=== PATIENT | male | born 1945 | race Caucasian/White ===

== ENCOUNTER → 2018-02-12 | Outpatient (CLI) | payer MEDICARE, BC ==
--- NOTE | 2018-02-12 12:51 | CT ---
EXAMINATION TYPE: CT abdomen pelvis w con DATE OF EXAM: 02/12/2018 COMPARISON: NONE HISTORY: 72-year-old male Right flank pain TECHNIQUE: Contiguous axial scanning of the abdomen and pelvis following administration of 100 ml Omn ipaque 300 IV contrast. Delayed images through the kidneys and coronal/sagittal reconstructions perf ormed. CT DLP: 1044.4 mGycm Automated exposure control for dose reduction was used. FINDINGS: Median sternotomy wires are present. Heart normal size without pericardial effusion. Lung bases clear without pleural effusion. Small hiatal hernia. Liver borderline enlarged measuring 18.0 cm. No focal liver lesion seen. No biliary ductal dilatation . Portal venous system is patent. Gallbladder, adrenal glands, left kidney, and pancreas appear within normal limits. Spleen borderline to mildly enlarged measuring 14.0 cm on axial series. Numerous subcentimeter hypodensities within the right kidney too small for accurate CT characterizati on, likely tiny cortical cysts, the largest measures 2.1 cm at the anterior mid to lower pole and wesley ws no significant change in density on delayed kidney images suggesting a cyst. Mild to moderate atherosclerotic calcifications throughout the abdominal aorta and iliac arteries. Appendix is normal. Oral contrast progressed to the hepatic flexure. Mild to moderate stool burden. N o pericolonic inflammatory change. No mesenteric or retroperitoneal lymphadenopathy. Small fatty umbilical hernia. Bladder partially distended. Central prostatic calcifications. Prostate gland is mildly enlarged at 4 .7 cm wide. No abnormal fluid collection in the pelvis or pelvic lymphadenopathy seen. Partially visu alized right scrotal hydrocele. Bones: Osteitis pubis and degenerative changes at the hips and SI joints. Grade 2 anterolisthesis at L5-S1 with bilateral L5 pars defects and facet arthropathy mid to lower arnaud mbar spine. Degenerative disc disease at both L4-L5 and advanced at L5-S1. No osseous destructive pro cess. IMPRESSION: 1. A NUMBER OF SUBCENTIMETER HYPODENSITIES IN THE RIGHT KIDNEY ARE TOO SMALL FOR ACCURATE CT CHARACTE RIZATION AND LIKELY REPRESENT SMALL CORTICAL CYSTS. THE LARGEST MEASURES 2.1 CM AND IS COMPATIBLE WIT H A CYST. 2. BORDERLINE TO MILD SPLENOMEGALY (14.0 CM). 3. BILATERAL L5 PARS DEFECTS WITH GRADE 2 ANTEROLISTHESIS AT L5-S1 AND ASSOCIATED SPONDYLOTIC CHANGE LOWER LUMBAR SPINE. 4. SMALL HIATAL HERNIA.
== END | disposition home or self-care (01) ==
LOC: RADCTMAIN 09:48
PROVIDERS: ATTEND Family Medicine
DX: K44.9 Diaphragmatic hernia without obstruction or gangrene (principal); N28.89 Other specified disorders of kidney and ureter; R16.1 Splenomegaly, not elsewhere classified
CPT/HCPCS: 82565; 84520; 74177; 36415; Q9967

== ENCOUNTER 2018-02-27 12:41 | Day surgery (SDC) | payer MEDICARE, BC ==
[2018-02-26 08:44] VITALS: BMI 29.4
[~2018-02-27 12:41] MED LIST: LACTATED RINGERS 1,000 ML IV SCH
[2018-02-27 13:22] VITALS: TEMP 97
[2018-02-27] MEDS ORDERED: LIDOCAINE 1% 20 ML VIAL (10MG/ML) FOR IV START INTRADERMA ONE (13:22)
[2018-02-27] MEDS ORDERED: LIDOCAINE 1% INJ 10MG/ML (20 ML MDV) ONE (13:39)
[2018-02-27] MEDS ORDERED: PROPOFOL 10 MG/ML 20 ML VIAL IV ONE (13:39)
[2018-02-27] MEDS ORDERED: IV FLUID CONTINUATION 400 ML IV ONE (14:04)
--- NOTE | 2018-02-27 14:09 | P.PCN ---
Date of Procedure: 02/27/18 Procedure(s) Performed: Procedure: Total colonoscopy. Preoperative diagnosis: Screening for neoplasia. Postoperative diagnosis: Mild sigmoid diverticulosis with no evidence of acute diverticulitis, strictures, polyps or cancer. Preparation: HalfLytely prep. Sedation: Was provided by anesthesia. Brief clinical history: The patient is a 72-year-old male who is scheduled for this evaluation for screening for neoplasia age being his risk factor. He had a prior exam more than 10 years ago. The patient has no abdominal complaints, bleeding or anemia. Procedure: With the patient on his left lateral decubitus position and after informed consent and adequate sedation, the perianal area was inspected and it did not show any fissures or fistulas. There were no masses felt on digital rectal examination. The Olympus CFQ 160L video colonoscope was then inserted in the rectum in the usual fashion and advanced to the cecum. There was occasional small diverticular orifices seen in the sigmoid but I saw no evidence of acute diverticulitis or strictures. No polyps or tumors were seen. I retroflexed the endoscope in the rectum before the endoscope was withdrawn. The patient tolerated the procedure well. Plan: The patient was reassured. Discussed dietary measures. He will follow up with you as planned and I recommended repeat exam in 10 years depending on his overall health at that time. He will discuss that with you.
[2018-02-27 14:28] VITALS: BP 143/75; PULSE 68; RESP 16
== END 2018-02-27 14:31 | disposition home or self-care (01) ==
LOC: ORWHC2ENDO 12:41
DX: Z12.11 Encounter for screening for malignant neoplasm of colon (principal); K57.30 Diverticulosis of large intestine without perforation or abscess without bleeding; I10 Essential (primary) hypertension; E78.5 Hyperlipidemia, unspecified; Z95.1 Presence of aortocoronary bypass graft
CPT/HCPCS: J2001; J2704; G0121

== ENCOUNTER 2018-11-18 07:47 | Observation (INO) | payer MEDICARE, BC ==
[2018-11-18] MEDS ORDERED: MORPHINE SULFATE 2 MG/ML SYRINGE IVP STA (08:30)
--- NOTE | 2018-11-18 08:33 | ED ---
General Adult HPI - General Chief complaint: Extremity Problem,Nontraumatic Stated complaint: shoulder pain Time Seen by Provider: 11/18/18 08:10 Source: patient, RN notes reviewed Mode of arrival: ambulatory Limitations: no limitations - History of Present Illness Initial comments: Patient is a pleasant 73-year-old male presenting to the emergency department with complaints of upper thoracic back pain. Onset of symptoms was around 2 AM. Discomfort is moderate. Discomfort feels like an ache. There may be some radiation up towards the neck and there may be very mild headache. No confusion. No visual problems. No weakness. No chest pain or dyspnea. 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 - Related Data Home Medications Medication Instructions Recorded Confirmed Aspirin EC [Ecotrin Low Dose] 81 mg PO DAILY 06/13/16 11/18/18 Hydrochlorothiazide 25 mg PO BID 06/13/16 11/18/18 Losartan Potassium [Cozaar] 100 mg PO DAILY 06/13/16 11/18/18 Metoprolol Tartrate [Lopressor] 50 mg PO DAILY 06/13/16 11/18/18 Simvastatin [Zocor] 40 mg PO HS 06/13/16 11/18/18 Chlorthalidone 25 mg PO DAILY 11/18/18 11/18/18 hydrALAZINE HCL [Apresoline] 100 mg PO TID 11/18/18 11/18/18 Allergies Allergy/AdvReac Type Severity Reaction Status Date / Time No Known Allergies Allergy Verified 11/18/18 10:44 Review of Systems ROS Statement: Those systems with pertinent positive or pertinent negative responses have been documented in the HPI. ROS Other: All systems not noted in ROS Statement are negative. Constitutional: Denies: fever Eyes: Denies: eye pain ENT: Denies: ear pain Respiratory: Denies: cough, dyspnea Cardiovascular: Denies: chest pain Endocrine: Denies: fatigue Gastrointestinal: Denies: abdominal pain Genitourinary: Denies: dysuria Musculoskeletal: Reports: as per HPI, back pain Skin: Denies: rash Neurological: Reports: as per HPI. Denies: weakness, confusion Past Medical History Past Medical History: Hyperlipidemia, Hypertension History of Any Multi-Drug Resistant Organisms: None Reported Past Surgical History: Coronary Bypass/CABG, Heart Catheterization Additional Past Surgical History / Comment(s): 5 way bypass 2003 Past Anesthesia/Blood Transfusion Reactions: No Reported Reaction Past Psychological History: No Psychological Hx Reported Smoking Status: Never smoker Past Alcohol Use History: None Reported Past Drug Use History: None Reported - Past Family History Mother Family Medical History: Deep Vein Thrombosis (DVT), Pulmonary Embolus General Exam Limitations: no limitations General appearance: alert, in no apparent distress Head exam: Present: atraumatic Eye exam: Present: normal appearance, PERRL ENT exam: Present: normal oropharynx Neck exam: Present: normal inspection. Absent: tenderness, meningismus Respiratory exam: Present: normal lung sounds bilaterally Cardiovascular Exam: Present: regular rate, normal rhythm Expanded Peripheral pulses: 2+: Radial (R), Radial (L), Posterior Tibialis (R), Posterior Tibialis (L), Dorsalis Pedis (R), Dorsalis Pedis (L) GI/Abdominal exam: Present: soft. Absent: tenderness Extremities exam: Present: normal inspection. Absent: pedal edema, calf tenderness Back exam: Present: normal inspection, full ROM. Absent: tenderness Neurological exam: Present: alert, oriented X3, CN II-XII intact. Absent: motor sensory deficit Psychiatric exam: Present: normal affect, normal mood Skin exam: Present: normal color Course Vital Signs 11/18/18 07:49 Temperature 98.1 F Pulse Rate 101 H Respiratory 18 Rate Blood Pressure 180/74 O2 Sat by Pulse 97 Oximetry EKG Findings - EKG Comments: EKG Findings:: Normal sinus rhythm 84. [place] 172. QRS 104. QT 382. QTC 451. Normal axis. Inferior T wave inversion. Normal QRS. Medical Decision Making - Medical Decision Making Patient reevaluated and improved following morphine. Patient and family updated on results and plan. 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 Patient did have a stress test not long ago with some concern for partial blockage in the lower part of his heart. Dr. Nesbitt has been paged, covering for Dr. Ruiz. - Lab Data Result diagrams: 11/18/18 08:50 11/18/18 08:50 Lab Results 11/18/18 11/18/18 11/18/18 Range/Units 08:50 08:50 08:50 WBC 3.6 L (3.8-10.6) k/uL RBC 5.75 (4.30-5.90) m/uL Hgb 17.4 (13.0-17.5) gm/dL Hct 48.4 (39.0-53.0) % MCV 84.1 (80.0-100.0) fL MCH 30.2 (25.0-35.0) pg MCHC 36.0 (31.0-37.0) g/dL RDW 13.4 (11.5-15.5) % Plt Count 149 L (150-450) k/uL PT (9.0-12.0) sec INR (<1.2) APTT (22.0-30.0) sec D-Dimer (<0.60) mg/L FEU Sodium 135 L (137-145) mmol/L Potassium 3.7 (3.5-5.1) mmol/L Chloride 98 (98-107) mmol/L Carbon Dioxide 24 (22-30) mmol/L Anion Gap 13 mmol/L BUN 17 (9-20) mg/dL Creatinine 1.08 (0.66-1.25) mg/dL Est GFR (CKD-EPI)AfAm 79 (>60 ml/min/1.73 sqM) Est GFR (CKD-EPI)NonAf 69 (>60 ml/min/1.73 sqM) Glucose 146 H (74-99) mg/dL Calcium 9.4 (8.4-10.2) mg/dL Magnesium 1.7 (1.6-2.3) mg/dL Total Bilirubin 1.1 (0.2-1.3) mg/dL AST 39 (17-59) U/L ALT 65 (21-72) U/L Alkaline Phosphatase 75 (38-126) U/L Total Creatine Kinase 76 (55-170) U/L CK-MB (CK-2) 0.4 (0.0-2.4) ng/mL CK-MB (CK-2) Rel Index 0.5 Troponin I <0.012 (0.000-0.034) ng/mL Total Protein 7.9 (6.3-8.2) g/dL Albumin 4.6 (3.5-5.0) g/dL 11/18/18 Range/Units 08:50 WBC (3.8-10.6) k/uL RBC (4.30-5.90) m/uL Hgb (13.0-17.5) gm/dL Hct (39.0-53.0) % MCV (80.0-100.0) fL MCH (25.0-35.0) pg MCHC (31.0-37.0) g/dL RDW (11.5-15.5) % Plt Count (150-450) k/uL PT 10.0 (9.0-12.0) sec INR 0.9 (<1.2) APTT 25.3 (22.0-30.0) sec D-Dimer 0.41 (<0.60) mg/L FEU Sodium (137-145) mmol/L Potassium (3.5-5.1) mmol/L Chloride (98-107) mmol/L Carbon Dioxide (22-30) mmol/L Anion Gap mmol/L BUN (9-20) mg/dL Creatinine (0.66-1.25) mg/dL Est GFR (CKD-EPI)AfAm (>60 ml/min/1.73 sqM) Est GFR (CKD-EPI)NonAf (>60 ml/min/1.73 sqM) Glucose (74-99) mg/dL Calcium (8.4-10.2) mg/dL Magnesium (1.6-2.3) mg/dL Total Bilirubin (0.2-1.3) mg/dL AST (17-59) U/L ALT (21-72) U/L Alkaline Phosphatase (38-126) U/L Total Creatine Kinase (55-170) U/L CK-MB (CK-2) (0.0-2.4) ng/mL CK-MB (CK-2) Rel Index Troponin I (0.000-0.034) ng/mL Total Protein (6.3-8.2) g/dL Albumin (3.5-5.0) g/dL - Radiology Data Radiology results: image reviewed (Chest x-ray shows no acute process) Disposition Clinical Impression: Thoracic back pain Disposition: ADMITTED IP TO THIS [facility] Is patient prescribed a controlled substance at d/c from ED?: No Referrals: Alexis Ruiz MD [Primary Care Provider] - 1-2 days Decision Time: 11:10
[2018-11-18 09:36] LABS: Albumin 4.6 g/dL (3.5-5.0); Calcium 9.4 mg/dL (8.4-10.2); Magnesium 1.7 mg/dL (1.6-2.3); Potassium 3.7 mmol/L (3.5-5.1); Total Bilirubin 1.1 mg/dL (0.2-1.3); Total Protein 7.9 g/dL (6.3-8.2)
[2018-11-18 09:39] LABS: HCT 48.4 % (39.0-53.0); HGB 17.4 gm/dL (13.0-17.5); Hyperchromasia Slight; MCH 30.2 pg (25.0-35.0); MCV 84.1 fL (80.0-100.0); Mean Platelet Volume 6.9; Platelet Count 149 k/uL (150-450); RBC 5.75 m/uL (4.30-5.90); RDW 13.4 % (11.5-15.5); WBC 3.6 k/uL (3.8-10.6)
[2018-11-18 09:41] LABS: Creatine Kinase 76 U/L (55-170)
[2018-11-18 09:53] LABS: Creatine Kinase MB 0.4 ng/mL (0.0-2.4); Troponin I <0.012 ng/mL (0.000-0.034)
[2018-11-18 10:06] LABS: D-Dimer 0.41 mg/L FEU (<0.60); INR 0.9 (<1.2); Partial Thromboplastin Time 25.3 sec (22.0-30.0)
--- NOTE | 2018-11-18 10:18 | XR ---
EXAMINATION TYPE: XR chest 2V DATE OF EXAM: 11/18/2018 COMPARISON: NONE HISTORY: Chest pain TECHNIQUE: Frontal and lateral views of the chest are obtained. FINDINGS: There is no focal air space opacity, pleural effusion, or pneumothorax seen. The cardiac silhouette size is within normal limits. The osseous structures are intact. Patient is post median sternotomy. There are cardiac leads. Aorta is dense. There are coronary artery calcifications. IMPRESSION: No acute cardiopulmonary process.
[2018-11-18] MEDS ORDERED: ASPIRIN 81 MG PO STA (11:11)
[2018-11-18] MEDS ORDERED: NITROGLYCERIN SL TABS 0.4 MG TAB SUBLINGUAL PRN (11:11)
[2018-11-18 11:15] LABS: Lymphocytes # (M) 1.01 k/uL (1.0-4.8); Monocytes # (M) 0.79 k/uL (0-1.0); Neutrophils % (M) 50 %; Nucleated Red Blood Cells 0 /100 WBC (0-0); Total Cells Counted 100
[2018-11-18 13:05] VITALS: BMI 28.9
[2018-11-18] MEDS: NITROGLYCERIN OINT 1 INCH/GM PACKET TOPICAL SCH ×2 (13:18→17:58)
--- NOTE | 2018-11-18 14:59 | P.CRDCN ---
History of Present Illness Consult date: 11/18/18 Chief complaint: Upper back pain History of present illness: This is a pleasant 73-year-old gentleman who follows in the office with Dr. Jaeger on regular basis with a past medical history significant for coronary artery disease and status post coronary artery bypass grafting in 2004 and according to him he received 5 bypasses, the details on that are unavailable at this point, hypertension, and dyslipidemia, presented to the emergency room complaining back discomfort. The patient was in his usual state of health until earlier today when he was sitting at home watching TV and suddenly started experiencing discomfort in the upper back, no discomfort in the chest, no shortness of breath, dizziness or lightheadedness, sweating, nausea or vomiting, heart racing or fluttering, or syncope. He stated that the discomfort has improved significantly after he was admitted to the hospital. He also stated that the discomfort is completely different from what he experienced before he had his open heart surgery where at that point he did have right-sided chest discomfort. The EKG showed sinus rhythm with nonspecific changes inferiorly. I don't have an old EKG to compare to this one. We have only one set of cardiac enzyme came in to be unremarkable. The chest x-ray did not show any acute abnormalities. The past medical history is as described above, CAD and status post CABG, hypertension, dyslipidemia The patient does not smoke or drink alcohol. Past Medical History Past Medical History: Hyperlipidemia, Hypertension History of Any Multi-Drug Resistant Organisms: None Reported Past Surgical History: Coronary Bypass/CABG, Heart Catheterization Additional Past Surgical History / Comment(s): 5 vessel bypass 2003 Past Anesthesia/Blood Transfusion Reactions: No Reported Reaction Past Psychological History: No Psychological Hx Reported Smoking Status: Never smoker Past Alcohol Use History: None Reported Past Drug Use History: None Reported - Past Family History Mother Family Medical History: Deep Vein Thrombosis (DVT), Pulmonary Embolus Medications and Allergies Home Medications Medication Instructions Recorded Confirmed Type Aspirin EC [Ecotrin Low Dose] 81 mg PO DAILY 06/13/16 11/18/18 History Hydrochlorothiazide 25 mg PO BID 06/13/16 11/18/18 History Losartan Potassium [Cozaar] 100 mg PO DAILY 06/13/16 11/18/18 History Metoprolol Tartrate [Lopressor] 50 mg PO DAILY 06/13/16 11/18/18 History Simvastatin [Zocor] 40 mg PO HS 06/13/16 11/18/18 History Chlorthalidone 25 mg PO DAILY 11/18/18 11/18/18 History hydrALAZINE HCL [Apresoline] 100 mg PO TID 11/18/18 11/18/18 History Allergies Allergy/AdvReac Type Severity Reaction Status Date / Time No Known Allergies Allergy Verified 11/18/18 10:44 Physical Exam Vitals: Vital Signs Temp Pulse Pulse Resp BP BP Pulse Ox 11/18/18 12:50 97.7 F 72 18 149/72 94 L 11/18/18 12:00 72 18 11/18/18 11:47 71 18 131/76 97 11/18/18 11:30 71 135/72 96 11/18/18 11:00 76 129/70 95 11/18/18 10:30 78 132/67 96 11/18/18 10:00 127/74 11/18/18 09:30 85 128/61 97 11/18/18 09:00 84 124/76 97 11/18/18 07:49 98.1 F 101 H 18 180/74 97 Intake and Output 11/17/18 11/18/18 11/18/18 22:59 06:59 14:59 Intake Total 240 Balance 240 Intake: Oral 240 Other: Voiding Method Toilet Weight 91.49 kg - Constitutional General appearance: no acute distress - Respiratory Respiratory: bilateral: CTA - Cardiovascular Rhythm: regular Heart sounds: normal: S1, S2 Abnormal Heart Sounds: systolic murmur Results 11/18/18 08:50 11/18/18 08:50 Cardiac Enzymes 11/18/18 11/18/18 Range/Units 08:50 08:50 AST 39 (17-59) U/L CK-MB (CK-2) 0.4 (0.0-2.4) ng/mL Troponin I <0.012 (0.000-0.034) ng/mL Coagulation 11/18/18 Range/Units 08:50 PT 10.0 (9.0-12.0) sec APTT 25.3 (22.0-30.0) sec CBC 11/18/18 Range/Units 08:50 WBC 3.6 L (3.8-10.6) k/uL RBC 5.75 (4.30-5.90) m/uL Hgb 17.4 (13.0-17.5) gm/dL Hct 48.4 (39.0-53.0) % Plt Count 149 L (150-450) k/uL Comprehensive Metabolic Panel 11/18/18 Range/Units 08:50 Sodium 135 L (137-145) mmol/L Potassium 3.7 (3.5-5.1) mmol/L Chloride 98 (98-107) mmol/L Carbon Dioxide 24 (22-30) mmol/L BUN 17 (9-20) mg/dL Creatinine 1.08 (0.66-1.25) mg/dL Glucose 146 H (74-99) mg/dL Calcium 9.4 (8.4-10.2) mg/dL AST 39 (17-59) U/L ALT 65 (21-72) U/L Alkaline Phosphatase 75 (38-126) U/L Total Protein 7.9 (6.3-8.2) g/dL Albumin 4.6 (3.5-5.0) g/dL Current Medications Generic Name Dose Route Start Last Admin Trade Name Freq PRN Reason Stop Dose Admin Aspirin 325 mg 11/19/18 09:00 Aspirin PO DAILY [facility] Nitroglycerin 1 inch 11/18/18 12:00 11/18/18 13:18 Nitro-Bid Oint TOPICAL Not Given Q6HR [facility] Nitroglycerin 0.4 mg 11/18/18 11:11 Nitrostat SUBLINGUAL Q5M PRN Chest Pain Sodium Chloride 10 ml 11/18/18 21:00 Saline Flush IV BID PAULA Intake and Output 11/17/18 11/18/18 11/18/18 22:59 06:59 14:59 Intake Total 240 Balance 240 Intake: Oral 240 Other: Voiding Method Toilet Weight 91.49 kg Patient Weight 11/19/18 06:59 Weight 91.49 kg 11/18/18 08:50 11/18/18 08:50 Assessment and Plan Assessment: Assessment #1 upper back discomfort. No chest pain or chest discomfort. #2 CAD and status post CABG in 2004. #3 hypertension #4 dyslipidemia Plan #1 acute coronary syndrome to be ruled out. We'll follow-up with the serial cardiac enzymes. Repeat the EKG as well. The patient was advised to stay overnight #2 meanwhile will continue the current medical regimen #3 further recommendation to follow that. Thank you for allowing us participate in his care and we will continue following up with the patient
[2018-11-18 15:15] LABS: Creatine Kinase 68 U/L (55-170)
[2018-11-18 15:26] LABS: Creatine Kinase MB 0.4 ng/mL (0.0-2.4); Troponin I <0.012 ng/mL (0.000-0.034)
[2018-11-18] MEDS ORDERED: ACETAMINOPHEN TAB 325 MG TAB PO PRN (16:14)
--- NOTE | 2018-11-18 16:17 | P.HPIM ---
History of Present Illness H&P Date: 11/18/18 Chief Complaint: Upper back discomfort Patient is a 73-year-old male with a known history of hypertension, hyperlipidemia, history of coronary artery bypass graft in 2003 came to ER with complaints of upper back discomfort. Patient was at home and watching TV, suddenly he developed upper back discomfort and neck pain and left shoulder muscle spasms. Pain started around 2 AM last night. Patient has been having constant dull pain since then. Denied any associated shortness of breath. No nausea vomiting or lightheadedness or dizziness. Patient came to ER for evaluation. Patient does have history of significant coronary disease and bypass graft in vessel. No fever no chills. Patient has been coughing recently with possible upper respiratory infections. Otherwise no sputum production. No runny nose. No fever no chills currently. Chest x-ray showed no acute cardio pulmonary process EKG showed normal sinus rhythm with some nonspecific changes in the inferior leads. Troponin 2 negative. Review of Systems Constitutional: Patient denies any fever or chills . No generalized weakness or weight loss. Abdomen: Patient denied nausea vomiting and diarrhea and abdominal pain. Cardiovascular: Patient denies any chest pain or short of breath no palpitations. Respiratory: patient denied any cough is from production. No shortness of breath Neurologic: Patient denied any numbness or tingling headache. Musculoskeletal: Patient denies any complaints of joint swelling or deformity. Upper back pain and neck pain. Skin: Negative Psychiatric: Negative Endocrine: No heat or cold intolerance. No recent weight gain. Genitourinary: No dysuria or hematuria. All other 14 point ROS negative except the above Past Medical History Past Medical History: Hyperlipidemia, Hypertension History of Any Multi-Drug Resistant Organisms: None Reported Past Surgical History: Coronary Bypass/CABG, Heart Catheterization Additional Past Surgical History / Comment(s): 5 vessel bypass 2003 Past Anesthesia/Blood Transfusion Reactions: No Reported Reaction Past Psychological History: No Psychological Hx Reported Smoking Status: Never smoker Past Alcohol Use History: None Reported Past Drug Use History: None Reported - Past Family History Mother Family Medical History: Deep Vein Thrombosis (DVT), Pulmonary Embolus Medications and Allergies Home Medications Medication Instructions Recorded Confirmed Type Aspirin EC [Ecotrin Low Dose] 81 mg PO DAILY 06/13/16 11/18/18 History Hydrochlorothiazide 25 mg PO BID 06/13/16 11/18/18 History Losartan Potassium [Cozaar] 100 mg PO DAILY 06/13/16 11/18/18 History Metoprolol Tartrate [Lopressor] 50 mg PO DAILY 06/13/16 11/18/18 History Simvastatin [Zocor] 40 mg PO HS 06/13/16 11/18/18 History Chlorthalidone 25 mg PO DAILY 11/18/18 11/18/18 History hydrALAZINE HCL [Apresoline] 100 mg PO TID 11/18/18 11/18/18 History Allergies Allergy/AdvReac Type Severity Reaction Status Date / Time No Known Allergies Allergy Verified 11/18/18 10:44 Physical Exam Vitals: Vital Signs Temp Pulse Pulse Resp BP BP Pulse Ox 11/18/18 12:50 97.7 F 72 18 149/72 94 L 11/18/18 12:00 72 18 11/18/18 11:47 71 18 131/76 97 11/18/18 11:30 71 135/72 96 11/18/18 11:00 76 129/70 95 11/18/18 10:30 78 132/67 96 11/18/18 10:00 127/74 11/18/18 09:30 85 128/61 97 11/18/18 09:00 84 124/76 97 11/18/18 07:49 98.1 F 101 H 18 180/74 97 Intake and Output 11/18/18 11/18/18 11/18/18 06:59 14:59 22:59 Intake Total 240 Balance 240 Intake: Oral 240 Other: Voiding Method Toilet Weight 91.49 kg PHYSICAL EXAMINATION: Patient is lying in the bed comfortably, no acute distress, awake alert and oriented.. HEENT: Normocephalic. Neck is supple. Pupils reactive. Nostrils clear. Oral cavity is moist. Ears reveal no drainage. Neck reveals no JVD, carotid bruits, or thyromegaly. CHEST EXAMINATION: Trachea is central. Symmetrical expansion. Lung prince clear to auscultation and percussion. CARDIAC: Normal S1, S2 with no gallops. No murmurs ABDOMEN: Soft. Bowel sounds normal. No organomegaly. No abdominal bruits. Extremities: reveal no edema. No clubbing or cyanosis Neurologically awake, alert, oriented x3 with well-coordinated movements. No focal deficits noted Skin: No rash or skin lesions. Psychiatric: Coperative. Nonsuicidal Musculoskeletal: No joint swelling or deformity. Normal range of motion. Results CBC & Chem 7: 11/18/18 08:50 11/18/18 08:50 Labs: Abnormal Lab Results - Last 24 Hours (Table) 11/18/18 11/18/18 Range/Units 08:50 08:50 WBC 3.6 L (3.8-10.6) k/uL Plt Count 149 L (150-450) k/uL Sodium 135 L (137-145) mmol/L Glucose 146 H (74-99) mg/dL Thrombosis Risk Factor Assmnt - DVT/VTE Prophylaxis DVT/VTE Prophylaxis: Pharmacologic Prophylaxis ordered - Choose All That Apply Any of the Below Risk Factors Present?: Yes Each Factor Represents 1 point: Obesity (BMI >25) Each Risk Factor Represents 2 Points: Age 61-74 years Thrombosis Risk Factor Assessment Total Risk Factor Score: 3 Thrombosis Risk Factor Assessment Level: Moderate Risk Assessment and Plan Assessment: Upper back pain and neck pain. Most likely musculoskeletal. History of 5 vessel coronary artery bypass graft in 2003 Hyperlipidemia Hypertension DVT prophylaxis Plan: Patient will be continued on pain management with Tylenol. Due to significant history of coronary artery disease and bypass graft patient will monitor for any acute coronary syndrome. Serial EKG. troponin 2 negative. Cardiology has a the patient and recommended to monitor tonight. Continue with home medications and follow closely. Further recommendations based on the clinical course. Time with Patient: Greater than 30
[2018-11-18] MEDS: HYDROCHLOROTHIAZIDE 25 MG TAB PO SCH (20:15)
[2018-11-18] MEDS ORDERED: ATORVASTATIN 20 MG TAB PO SCH (21:00)
[2018-11-18 21:20] LABS: Creatine Kinase 61 U/L (55-170)
[2018-11-18 21:33] LABS: Creatine Kinase MB 0.4 ng/mL (0.0-2.4); Troponin I <0.012 ng/mL (0.000-0.034)
[2018-11-19] MEDS: NITROGLYCERIN OINT 1 INCH/GM PACKET TOPICAL SCH ×2 (00:14→05:36)
[2018-11-19 04:28] LABS: Cholesterol 115 mg/dL (<200); HDL Cholesterol 27 mg/dL (40-60); LDL Cholesterol,Calculated 74 mg/dL (0-99); Triglycerides 71 mg/dL (<150)
[2018-11-19] MEDS ORDERED: ASPIRIN 325 MG TAB PO SCH (09:00)
[2018-11-19] MEDS ORDERED: CHLORTHALIDONE 25 MG TAB PO SCH (09:00)
[2018-11-19] MEDS ORDERED: NON-FORMULARY DRUG (Aspirin Ec 81 MG) PO SCH (09:00)
[2018-11-19] MEDS ORDERED: METOPROLOL TARTRATE 50 MG TAB PO SCH (09:00)
[2018-11-19] MEDS ORDERED: LOSARTAN 50 MG TAB PO SCH (09:00)
[2018-11-19] MEDS ORDERED: CARVEDILOL 6.25 MG TAB PO SCH (09:15)
[2018-11-19] MEDS: HYDROCHLOROTHIAZIDE 25 MG TAB PO SCH (10:05)
--- NOTE | 2018-11-19 11:49 | P.PN ---
Subjective Mr. Herr is a pleasant 73-year-old male past medical history significant for coronary artery disease status post bypass grafting, dyslipidemia and hypertension. He follows in the office with Dr. Jaeger. He has been struggling with elevated blood pressures over the previous couple of weeks. He has been monitoring this as an outpatient. He initially presented to the hospital with a 2-3 hour duration of tightness in the mid scapular upper back region. This was not worse with movement or exacerbated by breathing. Ultimately went away on its own after a few hours prior to arrival. An acute coronary event has been ruled out. Blood pressure 167/79 heart rate 81 afebrile maintaining oxygen saturation on room air. He denies any further symptoms of back discomfort, no chest pain, shortness of breath, dizziness or palpitations. Further discussion with the patient regarding his antihypertensive regimen and he states that he has been seeing Dr. Jaeger as well as Dr. Ruiz. GENERAL: Well-appearing, well-nourished and in no acute distress. NECK: Supple without JVD or thyromegaly. LUNGS: Breath sounds clear to auscultation bilaterally. Respiration equal and unlabored. No wheezes, rales or rhonchi. HEART: Regular rate and rhythm with systolic murmurs, rubs or gallops. S1 and S2 heard. EXTREMITIES: Normal range of motion, no edema. No clubbing or cyanosis. Peripheral pulses intact. ASSESSMENT Upper back discomfort. No chest discomfort or angina. Hypertension, uncontrolled Dyslipidemia History of coronary artery disease status post bypass grafting in 2004 PLAN An acute coronary event has been ruled out. Review of medications reveals he is taking hydrochlorothiazide along with chlorthalidone. We recommend discontinuation of hydrochlorothiazide. Discontinue Lopressor and initiated on carvedilol 6.25 mg twice a day. Continue hydralazine 100 mg 3 times a day, losartan 100 mg daily and aspirin 81 mg daily. Consider increasing simvastatin to 80 mg daily. Target LDL and a patient with known coronary artery disease of less than 70. Extensive discussion and education had with the patient regarding his medications, dosages and schedule. A list provided for the patient and his . Follow-up with Dr. Jaeger in the office in 2 weeks. Nurse Practitioner note has been reviewed, I agree with a documented findings and plan of care. Patient was seen and examined. Objective - Vital Signs Vital signs: Vital Signs Temp 98.7 F 01/28/19 07:53 Pulse 81 11/19/18 07:53 Resp 16 11/19/18 07:53 BP 167/79 11/19/18 07:53 Pulse Ox 94 L 11/19/18 07:53 Intake & Output 11/18/18 11/19/18 11/19/18 18:59 06:59 18:59 Intake Total 540 Balance 540 Weight 91.49 kg Intake: Oral 540 Other: Voiding Method Toilet Toilet # Voids 2 - Labs CBC & Chem 7: 11/18/18 08:50 11/18/18 08:50 Labs: Abnormal Lab Results - Last 24 Hours (Table) 11/18/18 11/18/18 11/18/18 Range/Units 08:50 08:50 08:50 WBC 3.6 L (3.8-10.6) k/uL Plt Count 149 L (150-450) k/uL Sodium 135 L (137-145) mmol/L Glucose 146 H (74-99) mg/dL HDL Cholesterol 27 L (40-60) mg/dL
[2018-11-19 12:42] VITALS: BP 159/77; PULSE 76; RESP 18; TEMP 98.5
--- NOTE | 2018-11-19 18:42 | ECHOF ---
Referral Reason:cp MEASUREMENTS -------- HEIGHT: 177.8 cm WEIGHT: 91.2 kg BP: 167/79 IVSd: 1.2 cm (0.6 - 1.1) LVIDd: 4.9 cm (3.9 - 5.3) LVPWd: 1.2 cm (0.6 - 1.1) IVSs: 1.6 cm LVIDs: 3.3 cm LVPWs: 1.6 cm RVIDd: 3.0 cm (< 3.3) LAESV Index (A-L): 16.99 ml/m Ao Diam: 3.7 cm (2.0 - 3.7) LA Diam: 3.9 cm (2.7 - 3.8) AV Cusp: 1.8 cm (1.5 - 2.6) EPSS: 0.2 cm MV E Ozzie: 0.49 m/s MV DecT: 384 ms MV A Ozzie: 0.88 m/s MV E/A Ratio: 0.56 RAP: 5.00 mmHg RVSP: 14.58 mmHg MV EF SLOPE: 26.93 mm/s (70 - 150) MV EXCURSION: 1.85 cm (> 18.000) FINDINGS -------- Sinus rhythm. This was a technically adequate study. The left ventricular size is normal. There is mild concentric left ventricular hypertrophy. Left ventricular systolic function is hyperdynamic with an estimated EF of >70%. The right ventricle is normal in size and function. Normal LA size by volume 22+/-6 ml/m2. The right atrium is normal in size. Aortic valve is trileaflet and is mildly thickened. Trace to mild aortic regurgitation. There is no evidence of aortic stenosis. The mitral valve leaflets are mildly thickened. There is trace to mild mitral regurgitation. Trace tricuspid regurgitation present. Right ventricular systolic pressure is normal at < 35 mmHg. There is no evidence of pulmonary hypertension. Trace/mild (physiologic) pulmonic regurgitation. The aortic root size is normal. Normal inferior vena cava with normal inspiratory collapse consistent with estimated right atrial pre ssure of 5 mmHg. There is no pericardial effusion. CONCLUSIONS -------- 1. Sinus rhythm. 2. This was a technically adequate study. 3. The left ventricular size is normal. 4. There is mild concentric left ventricular hypertrophy. 5. Left ventricular systolic function is hyperdynamic with an estimated EF of >70%. 6. Normal LA size by volume 22+/-6 ml/m2. 7. Aortic valve is trileaflet and is mildly thickened. 8. Trace to mild aortic regurgitation. 9. The mitral valve leaflets are mildly thickened. 10. There is trace to mild mitral regurgitation. 11. Trace tricuspid regurgitation present. 12. Right ventricular systolic pressure is normal at < 35 mmHg. 13. There is no evidence of pulmonary hypertension. 14. Trace/mild (physiologic) pulmonic regurgitation. 15. The aortic root size is normal. 16. There is no pericardial effusion. PROPERTY ASSISTANT: David Copeland RDCS
--- NOTE | 2018-11-20 13:27 | DS ---
DISCHARGE SUMMARY CHIEF COMPLAINT: Pain in the upper thoracic area. HISTORY OF PRESENT ILLNESS/PHYSICAL EXAM: Details of this man's history and physical can be found in the initial workup. LABORATORY STUDIES: White he was in a hospital, he had laboratory studies, details of which can be found in the laboratory section of the chart. COURSE IN THE HOSPITAL: While he was in a hospital, he had laboratory studies, details of which can be found in the laboratory section of the chart. After admission, he was placed on bedrest, started on intravenous fluids and had various studies to rule out myocardial disease, thoracic disease, pulmonary disease, or other etiologies. All the studies were negative. He was seen by Cardiology, echocardiogram started. It was felt he could be discharged to go home on his usual diet and activity and regular medications and will follow up in the office in a few days. FINAL DIAGNOSES: 1. Upper back pain, etiology unknown. 2. Myofasciitis. 3. Cervical or dorsal spine osteoarthritis. 4. Hypertension. OPERATIONS: None. CONSULTATION: Cardiology. He is improved. MMODL / IJN: [id number] /
== END 2018-11-19 14:37 | disposition home or self-care (01) ==
LOC: EC 07:47 → 1SOBS 11:11
PROVIDERS: ADMIT Family Medicine; ATTEND Family Medicine
DX: M54.6 Pain in thoracic spine (principal); M60.9 Myositis, unspecified; M47.9 Spondylosis, unspecified; I10 Essential (primary) hypertension; M62.838 Other muscle spasm; R05 Cough; E78.5 Hyperlipidemia, unspecified; I25.10 Atherosclerotic heart disease of native coronary artery without angina pectoris; E66.9 Obesity, unspecified; Z68.28 Body mass index [BMI] 28.0-28.9, adult; Z79.82 Long term (current) use of aspirin; Z79.899 Other long term (current) drug therapy; Z95.1 Presence of aortocoronary bypass graft; Z83.2 Family history of diseases of the blood and blood-forming organs and certain disorders involving the immune mechanism; Z82.49 Family history of ischemic heart disease and other diseases of the circulatory system
CPT/HCPCS: 96374; 99284; 36415; 93005; 93306; 85379; 80061; 80053; 82550; 82553; 83735; 84484; 85025; 85610; 85730; 71046; G0378 ×2; J2270

== ENCOUNTER 2018-12-07 17:05 | Emergency (ER) | payer MEDICARE, BC ==
[2018-12-07 17:32] VITALS: TEMP 97.8
[2018-12-07] MEDS ORDERED: LABETALOL SYRINGE 5 MG/ML IVP STA (19:56)
--- NOTE | 2018-12-07 20:00 | ED ---
General Adult HPI - General Chief complaint: Recheck/Abnormal Lab/Rx Stated complaint: High BP Time Seen by Provider: 12/07/18 19:20 Source: patient Mode of arrival: ambulatory Limitations: no limitations - History of Present Illness Initial comments: Dictation was produced using 20x200 dictation software. please excuse any grammatical, word or spelling errors. Chief Complaint: 73-year-old male presents with elevated blood pressure. History of Present Illness: Patient is a 73-year-old male past medical history of hypertension and dyslipidemia presents with elevated blood pressure. Patient checks his blood pressure frequently at home. He states he' s had hypertension since age of 20. Patient reports that his blood pressure was significantly elevated at home with a systolic measurement 190s. Concern again to the emergency department. Patient also states he has a mild headache. Patient states he normally gets headaches like these. Patient denies any neuro deficits. Patient is more concerned about his blood pressure readings at home. States his hypertension is being managed by his primary care physician who he is dissatisfied with. Patient is dissatisfied with the amount of blood pressure medications he takes. Patient does have established care with a roll handler. The ROS documented in this emergency department record has been reviewed and confirmed by me. Those systems with pertinent positive or negative responses have been documented in the HPI. All other systems are other negative and/or noncontributory. PHYSICAL EXAM: General Impression: Alert and oriented x3, not in acute distress HEENT: Normocephalic atraumatic, extra-ocular movements intact, pupils equal and reactive to light bilaterally, mucous membranes moist. Cardiovascular: Heart regular rate and rhythm, S1&S2 audible, no murmurs, rubs or gallops Chest: Lungs clear to auscultation bilaterally, no rhonchi, no wheeze, no rales Abdomen: Bowel sounds present, abdomen soft, non-tender, non-distended, no organomegaly Musculoskeletal: Pulses present and equal in all extremities, no peripheral edema Motor: Power 5/5 bilaterally, no focal deficits noted Neurological: CN II-XII grossly intact, no focal motor or sensory deficits noted Skin: Intact with no visualized rashes Psych: Normal affect and mood ED course: 73-year-old male with abnormal outpatient blood pressure. Patient checks his blood pressure at home. Vital signs upon arrival shows blood pressure 202/97. Rest vital signs within acceptable limits. Medications were reviewed. Patient reportedly was given prescription for amlodipine to be added to his blood pressure regimen. Patient clinical presentation consistent with asymptomatic hypertension. Patient requested some blood pressure medications. Patient's blood pressure improved somewhat below. Patient told to continue taking his antihypertensive medications as prescribed. He is told to find a new physician. This point would not recommend making dramatic changes to his blood pressure medications. For discharge. EKG interpretation: Ventricular rate 71, normal sinus rhythm,. Interval to 2, QRS 90, QTc 4:30. No NC prolongation, no QTC prolongation, no ST or T-wave changes noted. EKG compared to EKG from 11/18/2018 with no significant changes. Overall, this EKG is unremarkable - Related Data Home Medications Medication Instructions Recorded Confirmed Aspirin EC [Ecotrin Low Dose] 81 mg PO DAILY 06/13/16 12/07/18 Losartan Potassium [Cozaar] 100 mg PO DAILY 06/13/16 12/07/18 Simvastatin [Zocor] 40 mg PO HS 06/13/16 12/07/18 Chlorthalidone 25 mg PO DAILY 11/18/18 12/07/18 hydrALAZINE HCL [Apresoline] 100 mg PO BID 11/18/18 12/07/18 Previous Rx's Medication Instructions Recorded Carvedilol [Coreg] 6.25 mg PO BID-W/MEALS #180 tab 11/19/18 Allergies Allergy/AdvReac Type Severity Reaction Status Date / Time No Known Allergies Allergy Verified 12/07/18 19:37 Review of Systems ROS Statement: Those systems with pertinent positive or pertinent negative responses have been documented in the HPI. ROS Other: All systems not noted in ROS Statement are negative. Past Medical History Past Medical History: Coronary Artery Disease (CAD), Hyperlipidemia, Hypertension History of Any Multi-Drug Resistant Organisms: None Reported Past Surgical History: Coronary Bypass/CABG, Heart Catheterization Additional Past Surgical History / Comment(s): 5 vessel bypass 2003 Past Anesthesia/Blood Transfusion Reactions: No Reported Reaction Past Psychological History: No Psychological Hx Reported Smoking Status: Never smoker Past Alcohol Use History: None Reported Past Drug Use History: None Reported - Past Family History Mother Family Medical History: Deep Vein Thrombosis (DVT), Pulmonary Embolus General Exam Limitations: no limitations Course Vital Signs 12/07/18 12/07/18 17:30 19:37 Temperature 97.8 F Pulse Rate 70 70 Respiratory 20 16 Rate Blood Pressure 202/97 181/90 O2 Sat by Pulse 99 98 Oximetry Disposition Clinical Impression: Asymptomatic hypertension Disposition: HOME SELF-CARE Condition: Good Instructions (If sedation given, give patient instructions): Hypertension (ED) Is patient prescribed a controlled substance at d/c from ED?: No Referrals: Alexis Ruiz MD [Primary Care Provider] - 1-2 days Time of Disposition: 20:53
[2018-12-07 21:10] VITALS: BP 146/61; PULSE 88; RESP 18
== END 2018-12-07 21:08 | disposition home or self-care (01) ==
LOC: EC 17:05
DX: I10 Essential (primary) hypertension (principal); R51 Headache; I25.10 Atherosclerotic heart disease of native coronary artery without angina pectoris; E78.5 Hyperlipidemia, unspecified; Z95.1 Presence of aortocoronary bypass graft; Z95.818 Presence of other cardiac implants and grafts; Z79.82 Long term (current) use of aspirin; Z79.899 Other long term (current) drug therapy
CPT/HCPCS: 93005; 96374; 99283

== ENCOUNTER → 2018-12-24 | Outpatient (CLI) | payer MEDICARE, BC ==
[2018-12-24 18:43] LABS: Albumin 4.6 g/dL (3.80-4.90); Albumin/Globulin Ratio 2.09 (1.60-3.17); Anion Gap 12.7 mmol/L (4.00-12.00); Calcium 9.4 mg/dL (8.7-10.3); Carbon Dioxide 26.3 mmol/L (21.6-31.8); Globulin 2.2 g/dL (1.6-3.3); Potassium 3.4 mmol/L (3.5-5.5); Total Bilirubin 1.1 mg/dL (0.2-1.2); Total Protein 6.8 g/dL (6.2-8.2)
[2018-12-26 10:04] LABS: LDL Cholesterol,Calculated 43.6
[2018-12-26 10:05] LABS: VLDL Calculation 10.4
== END | disposition home or self-care (01) ==
LOC: LABWHC1 09:15
PROVIDERS: ATTEND Internal Medicine Interventional Cardiology
DX: E78.2 Mixed hyperlipidemia (principal)
CPT/HCPCS: 36415; 80053; 80061

== ENCOUNTER → 2019-07-22 | Outpatient (CLI) | payer MEDICARE, BC ==
[2019-07-22 16:00] LABS: African American GFR (CKD) 77.3 (60.0-200.0); Albumin 4.9 g/dL (3.80-4.90); Albumin/Globulin Ratio 2.13 (1.60-3.17); Anion Gap 11.1 mmol/L (4.00-12.00); BUN/Creat Ratio 14.55 Ratio (12.00-20.00); Calcium 9.9 mg/dL (8.7-10.3); Carbon Dioxide 28.9 mmol/L (21.6-31.8); Chol/HDL Ratio 3.72; Globulin 2.3 g/dL (1.6-3.3); Potassium 3.8 mmol/L (3.5-5.5); Total Bilirubin 0.9 mg/dL (0.2-1.2); Total Protein 7.2 g/dL (6.2-8.2)
== END ==
LOC: LABWHC1 07:38
PROVIDERS: ATTEND Internal Medicine Interventional Cardiology
DX: E78.2 Mixed hyperlipidemia (principal)
CPT/HCPCS: 36415; 80053; 80061

== ENCOUNTER 2019-12-31 18:43 | Emergency (ER) | payer MEDICARE, BC ==
[2019-12-31] MEDS ORDERED: ENALAPRILAT 1.25 MG/ML 1 ML VIAL IVP STA (19:49)
[2019-12-31] MEDS ORDERED: SODIUM CHLORIDE 0.9% 500 ML 500 ML IV STA (19:49)
[2019-12-31] MEDS ORDERED: hydrALAZINE HCL 50 MG TAB PO STA (20:08)
--- NOTE | 2019-12-31 20:08 | ED ---
General Adult HPI - General Source: patient, RN notes reviewed Mode of arrival: ambulatory Limitations: no limitations <Graham Fernandez - Last Filed: 01/01/20 02:21> <Luzmaria Solano - Last Filed: 01/05/20 02:51> - General Chief complaint: Recheck/Abnormal Lab/Rx Stated complaint: BP problems Time Seen by Provider: 12/31/19 19:25 - History of Present Illness Initial comments: 74-year-old male with a past medical history of CAD, hyperlipidemia, hypertension presents to the emergency department for high blood pressure. Patient states he woke up with a slight pressure in his head. States that when this happens he notes his blood pressure is high so he took his blood pressure and it was elevated in the 180s. States this headache feels exactly consistent with previous headaches. Denies any weakness in the arms or legs, lightheadedness, dizziness. Patient states that it stayed that way all day. States he did take his morning medications he does not take his evening medications for another 3 hours usually. Patient denies any chest pain abdominal pain or shortness of breath. Patient has no other complaints at this time including chest pain, abdominal pain, nausea or vomiting, headache, or visual changes. (Graham Fernandez) - Related Data Home Medications Medication Instructions Recorded Confirmed Aspirin EC [Ecotrin Low Dose] 81 mg PO DAILY 06/13/16 12/07/18 Losartan Potassium [Cozaar] 100 mg PO DAILY 06/13/16 12/07/18 Simvastatin [Zocor] 40 mg PO HS 06/13/16 12/07/18 Chlorthalidone 25 mg PO DAILY 11/18/18 12/07/18 hydrALAZINE HCL [Apresoline] 100 mg PO BID 11/18/18 12/07/18 Previous Rx's Medication Instructions Recorded Carvedilol [Coreg] 6.25 mg PO BID-W/MEALS #180 tab 11/19/18 Allergies Allergy/AdvReac Type Severity Reaction Status Date / Time No Known Allergies Allergy Verified 12/31/19 18:59 Review of Systems ROS Other: All systems not noted in ROS Statement are negative. <Graham Fernandez - Last Filed: 01/01/20 02:21> ROS Other: All systems not noted in ROS Statement are negative. <Damer,Luzmaria A - Last Filed: 01/05/20 02:51> ROS Statement: Those systems with pertinent positive or pertinent negative responses have been documented in the HPI. Past Medical History Past Medical History: Coronary Artery Disease (CAD), Hyperlipidemia, Hypertension History of Any Multi-Drug Resistant Organisms: None Reported Past Surgical History: Coronary Bypass/CABG, Heart Catheterization Additional Past Surgical History / Comment(s): 5 vessel bypass 2004 Past Anesthesia/Blood Transfusion Reactions: No Reported Reaction Past Psychological History: No Psychological Hx Reported Smoking Status: Never smoker Past Alcohol Use History: None Reported Past Drug Use History: None Reported - Past Family History Mother Family Medical History: Deep Vein Thrombosis (DVT), Pulmonary Embolus <Graham Fernandez - Last Filed: 01/01/20 02:21> General Exam Limitations: no limitations General appearance: alert, in no apparent distress Head exam: Present: atraumatic, normocephalic, normal inspection Eye exam: Present: normal appearance, PERRL, EOMI. Absent: scleral icterus, conjunctival injection, periorbital swelling ENT exam: Present: normal exam, mucous membranes moist Neck exam: Present: normal inspection, full ROM. Absent: tenderness, mening ismus, lymphadenopathy Respiratory exam: Present: normal lung sounds bilaterally. Absent: respiratory distress, wheezes, rales, rhonchi, stridor Cardiovascular Exam: Present: regular rate, normal rhythm, normal heart sounds. Absent: systolic murmur, diastolic murmur, rubs, gallop, clicks GI/Abdominal exam: Present: soft, normal bowel sounds. Absent: distended, tenderness, guarding, rebound, rigid Neurological exam: Present: alert, oriented X3, CN II-XII intact, normal gait, other (GCS 15) Expanded Patient oriented to: Present: person, time Speech: Present: fluid speech Cranial nerves: EOM's Intact: Normal, Tongue Deviation: Normal, Nystagmus: Normal Cerebellar function: Finger to Nose: Normal Upper motor neuron: Pronator Drift: Normal Sensory exam: Upper Extremity Light Touch: Normal, Upper Extremity Pin Prick: Normal, Lower Extremity Light Touch: Normal, Lower Extremity Pin Prick: Normal Motor strength exam: RUE: 5, LUE: 5, RLE: 5, LLE: 5 Eye Response: (4) open spontaneously Motor Response: (6) obeys commands Verbal Response: (5) oriented Vinay Total: 15 Psychiatric exam: Present: normal affect, normal mood <Graham Fernandez - Last Filed: 01/01/20 02:21> Course Vital Signs 12/31/19 12/31/19 12/31/19 18:56 20:02 21:05 Temperature 98.3 F Pulse Rate 78 70 71 Respiratory 20 20 20 Rate Blood Pressure 195/88 158/97 144/79 O2 Sat by Pulse 99 97 100 Oximetry 12/31/19 22:34 Temperature 97.9 F Pulse Rate 71 Respiratory 18 Rate Blood Pressure 157/77 O2 Sat by Pulse 95 Oximetry EKG Findings - EKG Comments: EKG Findings:: EKG shows a normal sinus rhythm, vent rate 75, pr interval 208, QRS duration 86, QTc 455 <Graham Fernandez - Last Filed: 01/01/20 02:21> Medical Decision Making - Lab Data Result diagrams: 12/31/19 19:56 12/31/19 19:56 <Graham Fernandez - Last Filed: 01/01/20 02:21> - Lab Data Result diagrams: 12/31/19 19:56 12/31/19 19:56 <Luzmaria Solano - Last Filed: 01/05/20 02:51> - Medical Decision Making Vitals are stable. CBC CMP unremarkable. Patient initially hypertensive with a blood pressure of 195/88. However this did improve to 144/79 with oral Home blood pressure medications. Chest x-ray shows no active cardiopulmonary disease. CT brain shows cerebral atrophy without acute intercranial abnormality. EKG is unremarkable, also reviewed by Dr. Solano. Patient states his headache is a 4 out of 10. States this is consistent with previous headaches he has had in the past. No focal neurologic deficits. Normal gait. No ataxia. Patient was given migraine cocktail, did have improvement in symptoms. Will be discharged home to return with any worsening symptoms. (Graham Fernandez) I was available for consultation in the emergency department. The history and physical exam were done by the midlevel provider. I was consulted for this patients care. I reviewed the case with the midlevel provider and based on their presentation of the patient, I agree with the assessment, medical decision making and plan of care as documented. Chart was dictated using obopay dictation software. Attempts were made to correct any dictation errors however some typographical errors may persist. (Luzmaria Solano) - Lab Data Lab Results 12/31/19 12/31/19 Range/Units 19:56 19:56 WBC 8.0 (3.8-10.6) k/uL RBC 5.58 (4.30-5.90) m/uL Hgb 16.3 (13.0-17.5) gm/dL Hct 45.8 (39.0-53.0) % MCV 82.1 (80.0-100.0) fL MCH 29.2 (25.0-35.0) pg MCHC 35.5 (31.0-37.0) g/dL RDW 12.9 (11.5-15.5) % Plt Count 206 (150-450) k/uL Neutrophils % 66 % Lymphocytes % 21 % Monocytes % 7 % Eosinophils % 2 % Basophils % 1 % Neutrophils # 5.3 (1.3-7.7) k/uL Lymphocytes # 1.7 (1.0-4.8) k/uL Monocytes # 0.6 (0-1.0) k/uL Eosinophils # 0.2 (0-0.7) k/uL Basophils # 0.0 (0-0.2) k/uL Hyperchromasia Slight Sodium 135 L (137-145) mmol/L Potassium 4.0 (3.5-5.1) mmol/L Chloride 95 L (98-107) mmol/L Carbon Dioxide 27 (22-30) mmol/L Anion Gap 13 mmol/L BUN 10 (9-20) mg/dL Creatinine 0.82 (0.66-1.25) mg/dL Est GFR (CKD-EPI)AfAm >90 (>60 ml/min/1.73 sqM) Est GFR (CKD-EPI)NonAf 88 (>60 ml/min/1.73 sqM) Glucose 124 H (74-99) mg/dL Calcium 9.6 (8.4-10.2) mg/dL Magnesium 1.6 (1.6-2.3) mg/dL Total Bilirubin 1.1 (0.2-1.3) mg/dL AST 37 (17-59) U/L ALT 47 (4-49) U/L Alkaline Phosphatase 85 (38-126) U/L Total Protein 8.0 (6.3-8.2) g/dL Albumin 5.0 (3.5-5.0) g/dL Disposition Is patient prescribed a controlled substance at d/c from ED?: No Time of Disposition: 22:14 <Graham Fernandez - Last Filed: 01/01/20 02:21> <Luzmaria Solano - Last Filed: 01/05/20 02:51> Clinical Impression: Headache, Hypertension Disposition: HOME SELF-CARE Condition: Good Instructions (If sedation given, give patient instructions): Acute Headache (ED) Additional Instructions: Please follow-up with your primary care provider to discuss blood pressure medications. If you have any worsening symptoms including worsening headache return to the emergency department. Referrals: Timoteo Wilson MD [Primary Care Provider] - 1-2 days
[2019-12-31] MEDS ORDERED: CARVEDILOL 6.25 MG TAB PO STA (20:09)
--- NOTE | 2019-12-31 20:30 | XR ---
EXAMINATION TYPE: XR chest 2V DATE OF EXAM: 12/31/2019 COMPARISON: 11/18/2018 HISTORY: Chest pain TECHNIQUE: 2 views FINDINGS: Heart is normal. Lungs are clear of infiltrate. There are sternal wires. Costophrenic angle s are clear. Bony thorax is intact. IMPRESSION: No active cardiopulmonary disease. Normal heart. No change.
[2019-12-31 20:54] LABS: ALT 47 U/L (4-49); AST 37 U/L (17-59); African American GFR (CKD) >90 (>60 ml/min/1.73 sqM); Alkaline Phosphatase 85 U/L (38-126); Anion Gap 13 mmol/L; Blood Urea Nitrogen 10 mg/dL (9-20); Calcium 9.6 mg/dL (8.4-10.2); Carbon Dioxide 27 mmol/L (22-30); Chloride 95 mmol/L (98-107); Glucose 124 mg/dL (74-99); Magnesium 1.6 mg/dL (1.6-2.3); Non-African American GFR(CKD) 88 (>60 ml/min/1.73 sqM); Sodium 135 mmol/L (137-145); Total Bilirubin 1.1 mg/dL (0.2-1.3)
[2019-12-31 21:06] VITALS: PULSE 71
[2019-12-31] MEDS ORDERED: MORPHINE SULFATE 2 MG/ML SYRINGE IVP STA (21:07)
[2019-12-31 21:19] LABS: Basophils % (A) 1 %; Eosinophils # (A) 0.2 k/uL (0-0.7); Eosinophils % (A) 2 %; HCT 45.8 % (39.0-53.0); HGB 16.3 gm/dL (13.0-17.5); Hyperchromasia Slight; Lymphocytes # (A) 1.7 k/uL (1.0-4.8); Lymphocytes % (A) 21 %; MCH 29.2 pg (25.0-35.0); MCHC 35.5 g/dL (31.0-37.0); MCV 82.1 fL (80.0-100.0); Mean Platelet Volume 7.3; Monocytes # (A) 0.6 k/uL (0-1.0); Monocytes % (A) 7 %; Neutrophils # (A) 5.3 k/uL (1.3-7.7); Neutrophils % (A) 66 %; Platelet Count 206 k/uL (150-450); RBC 5.58 m/uL (4.30-5.90); RDW 12.9 % (11.5-15.5)
--- NOTE | 2019-12-31 21:20 | CT ---
EXAMINATION TYPE: CT brain wo con DATE OF EXAM: 12/31/2019 COMPARISON: None HISTORY: Headache, BP problems. CT DLP: 1142.4 mGycm Automated exposure control for dose reduction was used. There is mild cerebral cortical atrophy. There is no mass effect nor midline shift. There is no sign of intracranial hemorrhage. Calvarium is intact. Skull base is intact. IMPRESSION: Cerebral atrophy. No acute intracranial abnormality.
[2019-12-31] MEDS ORDERED: KETOROLAC 30 MG/ML 1 ML VIAL IVP STA (21:43)
[2019-12-31] MEDS ORDERED: METOCLOPRAMIDE 5 MG/ML 2 ML VIAL IVP STA (21:43)
[2019-12-31] MEDS ORDERED: diphenhydrAMINE 50 MG/ML 1 ML VIAL IVP STA (21:43)
[2019-12-31 22:36] VITALS: BP 157/77; RESP 18; TEMP 97.9
== END 2019-12-31 22:37 | disposition home or self-care (01) ==
LOC: EC 18:43
DX: I10 Essential (primary) hypertension (principal); R51 Headache; G31.9 Degenerative disease of nervous system, unspecified; I25.10 Atherosclerotic heart disease of native coronary artery without angina pectoris; E78.5 Hyperlipidemia, unspecified; Z79.82 Long term (current) use of aspirin; Z79.899 Other long term (current) drug therapy; Z95.1 Presence of aortocoronary bypass graft
CPT/HCPCS: 36415; 93005; 80053; 83735; 85025; 71046; 70450; 99284; 96374; 96375 ×4; 96361 ×3; J1200; J2765; J1885; J2270

== ENCOUNTER → 2020-11-05 | Outpatient (CLI) | payer MEDICARE ==
[2020-11-05 10:54] LABS: Chol/HDL Ratio 3.93; LDL Cholesterol,Calculated 54.4 mg/dL (0.0-131.0); VLDL Calculation 24.6 mg/dL (5.00-40.00)
== END | disposition home or self-care (01) ==
LOC: LABWHC1 07:01
PROVIDERS: ATTEND Internal Medicine Interventional Cardiology
DX: E78.2 Mixed hyperlipidemia (principal)
CPT/HCPCS: 36415; 80061; 84450; 84460

== ENCOUNTER 2020-12-30 06:11 | Emergency (ER) | payer MEDICARE ==
[2020-12-30 06:18] VITALS: RESP 18; TEMP 97.7
[2020-12-30] MEDS ORDERED: SODIUM CHLORIDE 0.9% 500 ML 500 ML IV STA (06:36)
[2020-12-30] MEDS ORDERED: TRIMETHOBENZAMIDE 100 MG/ML 2 ML VIAL IM STA (06:37)
[2020-12-30 06:54] LABS: Basophils % (A) 1 %; Eosinophils # (A) 0.1 k/uL (0-0.7); Eosinophils % (A) 1 %; HCT 42.4 % (39.0-53.0); Hyperchromasia Slight; Lymphocytes # (A) 1.3 k/uL (1.0-4.8); Lymphocytes % (A) 19 %; MCH 29.2 pg (25.0-35.0); MCHC 35.4 g/dL (31.0-37.0); MCV 82.5 fL (80.0-100.0); Monocytes # (A) 0.5 k/uL (0-1.0); Monocytes % (A) 7 %; Neutrophils # (A) 4.7 k/uL (1.3-7.7); Neutrophils % (A) 70 %; Platelet Count 201 k/uL (150-450); RBC 5.14 m/uL (4.30-5.90); RDW 12.7 % (11.5-15.5); WBC 6.7 k/uL (3.8-10.6)
--- NOTE | 2020-12-30 07:01 | ED ---
Nausea/Vomiting/Diarrhea HPI - General Source: patient Mode of arrival: wheelchair Limitations: no limitations <Shanel Velez - Last Filed: 12/30/20 08:44> <Luzmaria Solano - Last Filed: 01/05/21 23:53> - General Chief complaint: Nausea/Vomiting/Diarrhea Stated complaint: Dizziness, nausea Time Seen by Provider: 12/30/20 06:23 - History of Present Illness Initial comments: 75-year-old male patient with past medical history significant for CAD s/p 5 vessel CABG, HTN, hyperlipidemia, presents to the emergency department today for evaluation of dizziness and nausea. Patient states he started to feel lighthea ded around 1800 last evening. Reports increased dizziness with movement of his head. States that he developed some nausea afterward. Denies any vomiting. States the nausea has persisted has become more intense. He denies any abdominal pain, chest pain, shortness of breath, fever, or chills. States that he did have an elevated blood pressure prior to coming in the believes it may been related to anxiety. Denies any numbness, tingling, or weakness to his extremities. Denies headache or visual disturbance. Patient denies any recent rash, cough, abdominal pain, nausea, vomiting, diarrhea, constipation, back pain, hematuria, dysuria, urinary urgency, urinary frequency, or any other complaints. (Shanel Velez) - Related Data Home Medications Medication Instructions Recorded Confirmed Aspirin EC [Ecotrin Low Dose] 81 mg PO DAILY 06/13/16 12/30/20 Losartan Potassium [Cozaar] 100 mg PO DAILY 06/13/16 12/30/20 Chlorthalidone 25 mg PO DAILY 11/18/18 12/30/20 hydrALAZINE HCL [Apresoline] 100 mg PO TID 11/18/18 12/30/20 Atorvastatin [Lipitor] 80 mg PO HS 12/30/20 12/30/20 Carvedilol [Coreg] 12.5 mg PO BID 12/30/20 12/30/20 Loratadine [Claritin] 10 mg PO DAILY 12/30/20 12/30/20 Montelukast [Singulair] 10 mg PO HS 12/30/20 12/30/20 amLODIPine [Norvasc] 5 mg PO HS 12/30/20 12/30/20 Allergies Allergy/AdvReac Type Severity Reaction Status Date / Time No Known Allergies Allergy Verified 12/30/20 08:32 Review of Systems ROS Other: All systems not noted in ROS Statement are negative. <Shanel Velez - Last Filed: 12/30/20 08:44> ROS Other: All systems not noted in ROS Statement are negative. <Luzmaria Solano - Last Filed: 01/05/21 23:53> ROS Statement: Those systems with pertinent positive or pertinent negative responses have been documented in the HPI. Past Medical History Past Medical History: Coronary Artery Disease (CAD), Hyperlipidemia, Hypertension History of Any Multi-Drug Resistant Organisms: None Reported Past Surgical History: Coronary Bypass/CABG, Heart Catheterization Additional Past Surgical History / Comment(s): 5 vessel bypass 2004 Past Anesthesia/Blood Transfusion Reactions: No Reported Reaction Past Psychological History: No Psychological Hx Reported Smoking Status: Former smoker Past Alcohol Use History: None Reported Past Drug Use History: None Reported - Past Family History Mother Family Medical History: Deep Vein Thrombosis (DVT), Pulmonary Embolus <Shanel Velez - Last Filed: 12/30/20 08:44> General Exam Limitations: no limitations General appearance: alert, in no apparent distress, other (Physical well-developed, well-nourished adult male patient in no acute distress. Vital signs upon presentation temperature 97.7F, pulse 72, respirations 18, blood pressure 150/79, pulse ox 95% on room air.) Eye exam: Present: normal appearance, PERRL, EOMI. Absent: scleral icterus, conjunctival injection, nystagmus, periorbital swelling ENT exam: Present: normal exam, normal oropharynx, mucous membranes moist, TM's normal bilaterally Respiratory exam: Present: normal lung sounds bilaterally. Absent: respiratory distress, wheezes, rales, rhonchi, stridor Cardiovascular Exam: Present: regular rate, normal rhythm, normal heart sounds. Absent: systolic murmur, diastolic murmur, rubs, gallop, clicks GI/Abdominal exam: Present: soft, normal bowel sounds. Absent: distended, tenderness, guarding, rebound, rigid Neurological exam: Present: alert, oriented X3, CN II-XII intact Expanded Speech: Present: fluid speech Motor strength exam: RUE: 5, LUE: 5, RLE: 5, LLE: 5 Psychiatric exam: Present: normal affect, normal mood Skin exam: Present: warm, dry, intact, normal color. Absent: rash <Shanel Velez - Last Filed: 12/30/20 08:44> Course Vital Signs 12/30/20 12/30/20 06:15 08:38 Temperature 97.7 F Pulse Rate 72 70 Respiratory 18 18 Rate Blood Pressure 150/79 147/83 O2 Sat by Pulse 95 96 Oximetry Medical Decision Making - Lab Data Result diagrams: 12/30/20 06:39 12/30/20 06:39 - EKG Data -: EKG Interpreted by Me <Shanel Velez - Last Filed: 12/30/20 08:44> - Lab Data Result diagrams: 12/30/20 06:39 12/30/20 06:39 <Luzmaria Solano - Last Filed: 01/05/21 23:53> - Medical Decision Making 75-year-old male patient presented to the emergency department today for evaluation of dizziness and nausea. Physical examination was unremarkable. He is neurologically intact with no focal deficits. Abdomen soft and nontender. Labs reviewed and did reveal elevated blood sugar around 269, patient has no previous diagnosis of diabetes. EKG was unremarkable. We did give IV fluids, replace his potassium. We did discuss dietary changes necessary for management of diabetes. He is instructed to follow-up with his primary care physician for recheck in 1-2 days. We did send hemoglobin A1c. Return parameters were discussed in detail. He verbalizes understanding and agrees with this plan. Also by attending Dr. Solano. (Shanel Velez) I was available for consultation in the emergency department. The history and physical exam were done by the midlevel provider. I was consulted for this patients care. I reviewed the case with the midlevel provider and based on their presentation of the patient, I agree with the assessment, medical decision making and plan of care as documented. Chart was dictated using [employer] dictation software. Attempts were made to correct any dictation errors however some typographical errors may persist. (Luzmaria Solano) - Lab Data Lab Results 12/30/20 12/30/20 12/30/20 Range/Units 06:39 06:39 06:39 WBC 6.7 (3.8-10.6) k/uL RBC 5.14 (4.30-5.90) m/uL Hgb 15.0 (13.0-17.5) gm/dL Hct 42.4 (39.0-53.0) % MCV 82.5 (80.0-100.0) fL MCH 29.2 (25.0-35.0) pg MCHC 35.4 (31.0-37.0) g/dL RDW 12.7 (11.5-15.5) % Plt Count 201 (150-450) k/uL MPV 7.0 Neutrophils % 70 % Lymphocytes % 19 % Monocytes % 7 % Eosinophils % 1 % Basophils % 1 % Neutrophils # 4.7 (1.3-7.7) k/uL Lymphocytes # 1.3 (1.0-4.8) k/uL Monocytes # 0.5 (0-1.0) k/uL Eosinophils # 0.1 (0-0.7) k/uL Basophils # 0.0 (0-0.2) k/uL Hyperchromasia Slight Sodium 138 (137-145) mmol/L Potassium 3.0 L (3.5-5.1) mmol/L Chloride 100 (98-107) mmol/L Carbon Dioxide 25 (22-30) mmol/L Anion Gap 13 mmol/L BUN 24 H (9-20) mg/dL Creatinine 0.92 (0.66-1.25) mg/dL Est GFR (CKD-EPI)AfAm >90 (>60 ml/min/1.73 sqM) Est GFR (CKD-EPI)NonAf 82 (>60 ml/min/1.73 sqM) Glucose 267 H (74-99) mg/dL Estimated Ave Glu mg/dL Hemoglobin A1c (4.0-6.0) % Calcium 9.6 (8.4-10.2) mg/dL Total Bilirubin 1.4 H (0.2-1.3) mg/dL AST 30 (17-59) U/L ALT 37 (4-49) U/L Alkaline Phosphatase 77 (38-126) U/L Troponin I <0.012 (0.000-0.034) ng/mL Total Protein 7.5 (6.3-8.2) g/dL Albumin 4.6 (3.5-5.0) g/dL Lipase 98 (23-300) U/L Urine Color Urine Appearance (Clear) Urine pH (5.0-8.0) Ur Specific [place] (1.001-1.035) Urine Protein (Negative) Urine Glucose (UA) (Negative) Urine Ketones (Negative) Urine Blood (Negative) Urine Nitrite (Negative) Urine Bilirubin (Negative) Urine Urobilinogen (<2.0) mg/dL Ur Leukocyte Esterase (Negative) 12/30/20 12/30/20 Range/Units 06:39 06:54 WBC (3.8-10.6) k/uL RBC (4.30-5.90) m/uL Hgb (13.0-17.5) gm/dL Hct (39.0-53.0) % MCV (80.0-100.0) fL MCH (25.0-35.0) pg MCHC (31.0-37.0) g/dL RDW (11.5-15.5) % Plt Count (150-450) k/uL MPV Neutrophils % % Lymphocytes % % Monocytes % % Eosinophils % % Basophils % % Neutrophils # (1.3-7.7) k/uL Lymphocytes # (1.0-4.8) k/uL Monocytes # (0-1.0) k/uL Eosinophils # (0-0.7) k/uL Basophils # (0-0.2) k/uL Hyperchromasia Sodium (137-145) mmol/L Potassium (3.5-5.1) mmol/L Chloride (98-107) mmol/L Carbon Dioxide (22-30) mmol/L Anion Gap mmol/L BUN (9-20) mg/dL Creatinine (0.66-1.25) mg/dL Est GFR (CKD-EPI)AfAm (>60 ml/min/1.73 sqM) Est GFR (CKD-EPI)NonAf (>60 ml/min/1.73 sqM) Glucose (74-99) mg/dL Estimated Ave Glu mg/dL 154 Hemoglobin A1c 7.0 H (4.0-6.0) % Calcium (8.4-10.2) mg/dL Total Bilirubin (0.2-1.3) mg/dL AST (17-59) U/L ALT (4-49) U/L Alkaline Phosphatase (38-126) U/L Troponin I (0.000-0.034) ng/mL Total Protein (6.3-8.2) g/dL Albumin (3.5-5.0) g/dL Lipase (23-300) U/L Urine Color Yellow Urine Appearance Clear (Clear) Urine pH 7.0 (5.0-8.0) Ur Specific [place] 1.017 (1.001-1.035) Urine Protein Trace H (Negative) Urine Glucose (UA) 1+ H (Negative) Urine Ketones Negative (Negative) Urine Blood Negative (Negative) Urine Nitrite Negative (Negative) Urine Bilirubin Negative (Negative) Urine Urobilinogen <2.0 (<2.0) mg/dL Ur Leukocyte Esterase Negative (Negative) - EKG Data EKG Comments: EKG obtained at 0632 shows sinus rhythm with first-degree AV block with occasional PVCs. Prolonged QT interval. Ventricular rate is 74, CO interval 218, QRS duration 108, QT 440, QTC 488. No evidence of ST elevation or depression. (Shanel Velez) Disposition Is patient prescribed a controlled substance at d/c from ED?: No <Shanel Velez - Last Filed: 12/30/20 08:44> <Luzmaria Solano - Last Filed: 01/05/21 23:53> Clinical Impression: Hyperglycemia Disposition: HOME SELF-CARE Condition: Good Instructions (If sedation given, give patient instructions): Type 2 Diabetes in Adults: New Diagnosis (ED), Meal Planning with Diabetes Exchanges (DC) Additional Instructions: Follow up with your primary care physician for recheck in 1-2 days. Return to the emergency department immediately for any new, worsening, or concerning symptoms. Referrals: Monica Dunlap MD [Primary Care Provider] - 1-2 days
[2020-12-30 07:02] LABS: ALT 37 U/L (4-49); AST 30 U/L (17-59); African American GFR (CKD) >90 (>60 ml/min/1.73 sqM); Albumin 4.6 g/dL (3.5-5.0); Alkaline Phosphatase 77 U/L (38-126); Anion Gap 13 mmol/L; Blood Urea Nitrogen 24 mg/dL (9-20); Calcium 9.6 mg/dL (8.4-10.2); Carbon Dioxide 25 mmol/L (22-30); Chloride 100 mmol/L (98-107); Glucose 267 mg/dL (74-99); Lipase 98 U/L (23-300); Non-African American GFR(CKD) 82 (>60 ml/min/1.73 sqM); Sodium 138 mmol/L (137-145); Total Bilirubin 1.4 mg/dL (0.2-1.3); Total Protein 7.5 g/dL (6.3-8.2)
[2020-12-30] MEDS ORDERED: FAMOTIDINE 20 MG/2 ML VIAL IV STA (08:08)
[2020-12-30] MEDS ORDERED: SODIUM CHLORIDE 0.9% 500 ML 500 ML IV ONE (08:08)
[2020-12-30] MEDS ORDERED: POTASSIUM CHLORIDE ER 20 MEQ TAB.ER PO STA (08:09)
[2020-12-30 08:40] VITALS: BP 147/83; PULSE 70
[2020-12-30 08:53] LABS: Appearance,Urine Clear (Clear); Bilirubin,Urine Negative (Negative); Blood,Urine Negative (Negative); Color,Urine Yellow; Glucose,Urine (UA) 1+ (Negative); Ketones,Urine Negative (Negative); Leukocyte Esterase,Urine Negative (Negative); Nitrite,Urine Negative (Negative); Protein,Urine Trace (Negative); Specific Gravity,Urine 1.017 (1.001-1.035); Urobilinogen,Urine <2.0 mg/dL (<2.0)
== END 2020-12-30 09:25 | disposition home or self-care (01) ==
LOC: EC 06:11
DX: R73.9 Hyperglycemia, unspecified (principal); E78.5 Hyperlipidemia, unspecified; I25.10 Atherosclerotic heart disease of native coronary artery without angina pectoris; Z79.2 Long term (current) use of antibiotics; Z79.899 Other long term (current) drug therapy; Z87.891 Personal history of nicotine dependence; Z95.5 Presence of coronary angioplasty implant and graft; Z95.1 Presence of aortocoronary bypass graft
CPT/HCPCS: 36415; 93005; 80053; 83690; 84484; 85025; 81003; 83036; 99284; 96374; 96372; 96361 ×2; J3250

== ENCOUNTER → 2021-05-13 | Outpatient (CLI) | payer MEDICARE ==
[2021-05-13 14:43] LABS: African American GFR (CKD) 76.2 (60.0-200.0); Albumin 4.6 g/dL (3.80-4.90); Albumin/Globulin Ratio 1.77 (1.60-3.17); Anion Gap 11.1 mmol/L (4.00-12.00); BUN/Creat Ratio 19.09 Ratio (12.00-20.00); Calcium 9.6 mg/dL (8.7-10.3); Carbon Dioxide 29.9 mmol/L (21.6-31.8); Chol/HDL Ratio 4.04; Globulin 2.6 g/dL (1.6-3.3); LDL Cholesterol,Calculated 49.6 mg/dL (0.0-131.0); Non-African American GFR(CKD) 65.8 (60.0-200.0); Potassium 4.5 mmol/L (3.5-5.5); Total Bilirubin 0.9 mg/dL (0.3-1.2); Total Protein 7.2 g/dL (6.2-8.2); VLDL Calculation 23.4 mg/dL (5.00-40.00)
== END | disposition home or self-care (01) ==
LOC: LABWHC1 06:54
PROVIDERS: ATTEND Internal Medicine Interventional Cardiology
DX: E78.2 Mixed hyperlipidemia (principal)
CPT/HCPCS: 36415; 80053; 80061

== ENCOUNTER → 2022-05-27 | Outpatient (CLI) | payer MEDICARE ==
[2022-05-27 11:50] LABS: ALT 32 U/L (10-49); AST 28 U/L (14-35); African American GFR (CKD) 96.5 (60.0-200.0); Albumin 4.5 g/dL (3.8-4.9); Albumin/Globulin Ratio 1.67 (1.60-3.17); Alkaline Phosphatase 70 U/L (41-126); BUN/Creat Ratio 21.67 Ratio (12.00-20.00); Blood Urea Nitrogen 19.5 mg/dL (9.0-27.0); Calcium 9.3 mg/dL (8.7-10.3); Chloride 100 mmol/L (96-109); Chol/HDL Ratio 3.43 Ratio; Globulin 2.7 g/dL (1.6-3.3); Glucose 173 mg/dL (70-110); LDL Cholesterol,Calculated 48.9 mg/dL (0.0-131.0); Non-African American GFR(CKD) 83.3 (60.0-200.0); Potassium 3.6 mmol/L (3.5-5.5); Sodium 136 mmol/L (135-145); Total Protein 7.2 g/dL (6.2-8.2)
== END | disposition home or self-care (01) ==
LOC: LABWHC1 07:07
PROVIDERS: ATTEND Internal Medicine Interventional Cardiology
DX: I10 Essential (primary) hypertension (principal); E78.2 Mixed hyperlipidemia
CPT/HCPCS: 36415; 80053; 80061

== ENCOUNTER → 2023-01-13 | Outpatient (CLI) | payer MEDICARE ==
[2023-01-13 11:00] LABS: ALT 40 U/L (10-49); AST 27 U/L (14-35); Chol/HDL Ratio 3.29 Ratio; LDL Cholesterol,Calculated 47.1 mg/dL (0.0-131.0)
== END | disposition home or self-care (01) ==
LOC: LABWHC1 06:42
PROVIDERS: ATTEND Internal Medicine Interventional Cardiology
DX: E78.2 Mixed hyperlipidemia (principal)
CPT/HCPCS: 36415; 80061; 84450; 84460

== ENCOUNTER → 2023-07-24 | Outpatient (CLI) | payer MEDICARE ==
[2023-07-24 11:36] LABS: ALT 38 U/L (10-49); AST 26 U/L (14-35); Albumin 4.6 d/dL (3.8-4.9); Alkaline Phosphatase 70 U/L (41-126); BUN/Creat Ratio 20.67 Ratio (12.00-20.00); Blood Urea Nitrogen 18.6 mg/dL (9.0-27.0); Calcium 9.4 mg/dL (8.7-10.3); Carbon Dioxide 26.1 mmol/L (21.6-31.8); Chloride 99 mmol/L (96-109); Chol/HDL Ratio 2.82 Ratio; Globulin 2.3 d/dL (1.6-3.3); Glucose 168 mg/dL (70-110); LDL Cholesterol,Calculated 35.5 mg/dL (0.0-131.0); Potassium 4.1 mmol/L (3.5-5.5); Sodium 137 mmol/L (135-145); Total Bilirubin 0.7 mg/dL (0.3-1.2); Total Protein 6.9 d/dL (6.2-8.2); VLDL Calculation 17.44 mg/dL (5.00-40.00)
== END | disposition home or self-care (01) ==
LOC: LABWHC1 07:03
PROVIDERS: ATTEND Internal Medicine Interventional Cardiology
DX: I10 Essential (primary) hypertension (principal); E78.2 Mixed hyperlipidemia
CPT/HCPCS: 36415; 80053; 80061

== ENCOUNTER → 2024-01-19 | Outpatient (CLI) | payer MEDICARE ==
[2024-01-19 16:11] LABS: ALT 42 U/L (10-49); AST 28 U/L (14-35); Albumin 4.7 g/dL (3.8-4.9); Albumin/Globulin Ratio 1.81 Ratio (1.60-3.17); Alkaline Phosphatase 76 U/L (41-126); Blood Urea Nitrogen 16.7 mg/dL (9.0-27.0); Carbon Dioxide 28.1 mmol/L (21.6-31.8); Chloride 100 mmol/L (96-109); Chol/HDL Ratio 3.22 Ratio; Globulin 2.6 g/dL (1.6-3.3); Glucose 178 mg/dL (70-110); LDL Cholesterol,Calculated 44.9 mg/dL (0.0-131.0); Potassium 4.2 mmol/L (3.5-5.5); Sodium 139 mmol/L (135-145); Total Bilirubin 0.9 mg/dL (0.3-1.2); Total Protein 7.3 g/dL (6.2-8.2)
== END | disposition home or self-care (01) ==
LOC: LABWHC1 06:59
PROVIDERS: ATTEND Internal Medicine Interventional Cardiology
DX: E78.2 Mixed hyperlipidemia (principal)
CPT/HCPCS: 36415; 80053; 80061

== ENCOUNTER → 2024-07-24 | Outpatient (CLI) | payer MEDICARE ==
[2024-07-24 11:18] LABS: ALT 47 U/L (10-49); AST 28 U/L (14-35); LDL Cholesterol,Calculated 29.6 mg/dL (0.0-131.0)
== END | disposition home or self-care (01) ==
LOC: LABWHC1 06:46
PROVIDERS: ATTEND Internal Medicine Interventional Cardiology
DX: E78.2 Mixed hyperlipidemia (principal)
CPT/HCPCS: 36415; 80061; 84450; 84460

== ENCOUNTER → 2025-01-21 | Outpatient (CLI) | payer MEDICARE ==
[2025-01-21 10:36] LABS: ALT 50 U/L (10-49); AST 35 U/L (14-35); Albumin 4.5 g/dL (3.8-4.9); Albumin/Globulin Ratio 1.67 Ratio (1.60-3.17); Alkaline Phosphatase 91 U/L (41-126); Blood Urea Nitrogen 13.6 mg/dL (9.0-27.0); Calcium 9.4 mg/dL (8.7-10.3); Carbon Dioxide 26.4 mmol/L (21.6-31.8); Chloride 93 mmol/L (96-109); Chol/HDL Ratio 3.09 Ratio; Globulin 2.7 g/dL (1.6-3.3); Glucose 161 mg/dL (70-110); LDL Cholesterol,Calculated 48.4 mg/dL (0.0-131.0); Potassium 3.8 mmol/L (3.5-5.5); Sodium 132 mmol/L (135-145); Total Protein 7.2 g/dL (6.2-8.2); VLDL Calculation 18.58 mg/dL (5.00-40.00)
== END | disposition home or self-care (01) ==
LOC: LABWHC1 07:28
PROVIDERS: ATTEND Internal Medicine Interventional Cardiology
DX: I10 Essential (primary) hypertension (principal); E78.2 Mixed hyperlipidemia
CPT/HCPCS: 36415; 80053; 80061